=== PATIENT | male | born 1975 | race Caucasian/White ===

== ENCOUNTER 2017-05-24 03:56 | Emergency (ER) | payer OTHER, MEDICARE ==
[~2017-05-24] VITALS: Ht 170.2 cm; Wt 108.9 kg
--- NOTE | ~2017-05-24 | CR17 ---
[facility] A Service of [facility] RADIOLOGY TEXT RESULTS PATIENT: VERONICA MASSEY LOCATION: [facility] : 75 UNIT #: [id number] AGE: [address]: Clinton Wong MD SEX: M ORDER DR: [id number] [place] [facility]. [place], [place] [address] [id number] E MR#: [id number] Acc #: [id number] NAME: VERONICA MASSEY : 1975 SEX: M STUDY DATE/TIME: 05/24/2017 5:42 UNIT: [facility] ROOM: STUDY DESCRIPTION: CR Ankle 2 Views Lt Attending Physician: Clinton Wong M.D. Ordering Physician: Clinton Wong M.D. Primary Care Physician: Primary Care Physician No MEDICAL IMAGING REPORT This report is preliminary unless electronic signature is present EXAM Left ankle 2 views HISTORY Ankle fracture, post reduction. FINDINGS Two views left ankle obtained through cast demonstrate no significant interval change in the ankle alignment compared to earlier today. Approximately 13.0 mm medial subluxation of the tibia on the talus. Oblique fracture through the distal fibular metaphysis with 11.0 mm overriding of the proximal and distal fibular fracture fragments. Decreased medial angulation of the fibular fracture apex. Soft tissue swelling about the ankle. IMPRESSION 1. There is slightly decreased medial angulation of the fracture apex through the distal fibular metaphysis as compared to earlier today. There is persistent 11.0 mm overriding of the proximal and distal fibular fracture fragments. There has been no significant interval change in the medial subluxation of the tibia on the talus, now measuring 13.0 mm. 2. Mild soft tissue swelling about the ankle. 3. Overlying cast. Dictated by... Mahad Granda M.D. THIS IS AN ELECTRONICALLY VERIFIED REPORT Mahad Granda M.D. at 05/24/2017 10:08 PM Dedrick TD: 05/24/2017 08:27 [facility] A Service of [facility] RADIOLOGY TEXT RESULTS PATIENT: VERONICA MASSEY LOCATION: [facility] #: [id number] : 75 UNIT #: [id number] AGE: [address]: Clinton Wong MD SEX: M ORDER DR: JOB #: [id number] MEDICAL IMAGING REPORT Page 1 of 1 COPY
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
[~2017-05-24 03:56] MED LIST: LAMICTAL PO; SEROQUEL50 MG PO
[2017-05-26] MEDS ORDERED: VIMPAT100 MG PO (06:43)
[2017-05-26] MEDS ORDERED: LAMICTAL PO (06:44)
[2017-05-26] MEDS ORDERED: HYDROCODON-ACE1 EAC7 PO (06:45)
== END 2017-05-24 09:40 | disposition home or self-care (01) ==
LOC: CED 03:56
DX: S82.832A Other fracture of upper and lower end of left fibula, initial encounter for closed fracture (principal); F17.200 Nicotine dependence, unspecified, uncomplicated; X50.1XXA Overexertion from prolonged static or awkward postures, initial encounter; Y92.410 Unspecified street and highway as the place of occurrence of the external cause
CPT/HCPCS: 29515; 36415; 73600; 73610; 96374; 99284; G0480; J3010

== ENCOUNTER → 2017-05-26 | Day surgery (SDC) | payer MEDICARE, OTHER ==
[~2017-05-26] MED LIST changes: +HYDROCODON-ACE1 EAC7 PO; +VIMPAT100 MG PO
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
--- NOTE | ~2017-05-26 | CR17 ---
[facility] A Service [facility] RADIOLOGY TEXT RESULTS PATIENT: VERONICA MASSEY LOCATION: [facility] : 75 UNIT #: [id number] AGE: [address]: Slade Cano MD SEX: M ORDER DR: [id number] [address] [address] [id number] O MR#: [id number] Acc #: [id number] NAME: VERONICA MASSEY : 1975 SEX: M STUDY DATE/TIME: 05/26/2017 07:47 UNIT: [facility] ROOM: STUDY DESCRIPTION: CR Ankle 2 Views Lt Attending Physician: Slade Cano M.D. Ordering Physician: Slade Cano M.D. Primary Care Physician: Primary Care Physician No MEDICAL IMAGING REPORT This report is preliminary unless electronic signature is present EXAM Left ankle intraoperative views, 05/26/2017 07:47 hours HISTORY 42-year-old man with a comminuted unstable distal fibula fracture and disruption of the ankle mortise for ORIF by Dr. Cano. COMPARISON 05/24/2017 FINDINGS Submitted for interpretation are 2 intraoperative views obtained by Dr. Cano following 0.31 minutes of fluoroscopy time. These images demonstrate plate and screw fixation through the distal fibula fracture with long transverse screws traversing from the fibula into the distal tibia x4. The ankle mortise appears symmetric on this single view in the AP or slightly oblique projection. No fracture of the tibia is seen. IMPRESSION 2 intraoperative views are obtained following 0.31 minutes of fluoroscopy time demonstrating ORIF of distal fibula fracture and rastafari of the ankle joint. Dictated by... Deb Liriano M.D. THIS IS AN ELECTRONICALLY VERIFIED REPORT Deb Liriano M.D. at 05/26/2017 2:30 PM Dyan TD: 05/26/2017 10:37 JOB #: [id number] [facility] A Service [facility] RADIOLOGY TEXT RESULTS PATIENT: VERONICA MASSEY LOCATION: [facility] #: [id number] : 75 UNIT #: [id number] AGE: [address]: Slade Cano MD SEX: M ORDER DR: MEDICAL IMAGING REPORT Page 1 of 1 COPY
[2017-05-26 07:38] LABS: BUN/CREATININE RATIO 8.46; CALCIUM SERUM 8.9 mg/dL (8.4-10.2); CREATININE SERUM 1.3 mg/dL (0.6-1.4); GLOM FILT RATE Estimated 67.3 mL/min (>60); POTASSIUM 3.9 mmol/L (3.5-5.1)
[2017-05-26 08:06] LABS: HEMATOCRIT 45.7 % (38.0-50.0); HEMOGLOBIN 15.1 gm/dL (13.0-16.0); MEAN CELL VOLUME 90.8 FL (83-96); MEAN CORPUSCULAR HEMOGLOBIN 29.9 PG (28-34); MEAN PLATELET VOLUME 8.7 FL (6.5-11.5); RED BLOOD COUNT 5.03 X10e (3.90-5.60); RED CELL DISTRIBUTION WIDTH 15.9 % (11.0-15.5)
== END | disposition home or self-care (01) ==
LOC: CSUR 06:22
PROVIDERS: Specialist
DX: S82.842A Displaced bimalleolar fracture of left lower leg, initial encounter for closed fracture (principal); S93.432A Sprain of tibiofibular ligament of left ankle, initial encounter; W19.XXXA Unspecified fall, initial encounter; Z87.891 Personal history of nicotine dependence; Z79.899 Other long term (current) drug therapy; Z98.890 Other specified postprocedural states
CPT/HCPCS: 73600; 76001; 80048; 85027; C1713; J0690; J1100; J1885; J2250; J2270; J2765